=== PATIENT | female | born 1940 | race Caucasian/White ===

== ENCOUNTER 2018-05-21 16:33 | Inpatient (IN) | payer MEDICARE ==
[~2018-05-21] VITALS: Ht 152.4 cm; Wt 53.1 kg
[~2018-05-21 16:33] MED LIST: ACETAMINOPHEN325 M1; BACTROBAN15 GM; COLACE100 MG; EVISTA PO; FAMOTIDINE; HYDROCHLOROTHIA25 M1 PO; HYDROCODON-ACE1 EACH PO; LOVENOX SQ; PERCOCET 5-3251 EACH PO; VYTORIN 10-201 EACH PO
[2018-05-21 16:35] VITALS: BP 96/47
[2018-05-21 17:15] LABS: URINE BILIRUBIN NEGATIVE (Negative); URINE BLOOD TRACE (Negative); URINE CLARITY CLEAR; URINE COLOR YELLOW; URINE GLUCOSE-RANDOM NEGATIVE (Negative); URINE KETONES TRACE (Negative); URINE LEUKOCYTES-REFLEX 1+ (Negative); URINE PROTEIN NEGATIVE (Negative); URINE SPECIFIC GRAVITY >= 1.030 (1.005-1.030); URINE UROBILINOGEN 0.2 E.U./dl (0.2-1.0)
[2018-05-21 17:19] LABS: URINE NITRITE-REFLEX POSITIVE (Negative)
[2018-05-21 17:25] LABS: BACTERIA-REFLEX >30 Many /HPF (None Seen); CASTS None Seen /LPF (None Seen); CRYSTALS None Seen /LPF (None Seen); SQUAMOUS 0-3 Few /LPF (0-3); URINE RBC 0-2 Rare /HPF (0-2); URINE WBC-REFLEX 0-5 Rare /HPF (0-5)
[2018-05-21 17:32] LABS: ABSOLUTE BASOPHILS 0.1 thou/uL (0.0-0.2); ABSOLUTE EOSINOPHILS 0.4 thou/uL (0.0-0.7); ABSOLUTE LYMPHOCYTES 1.3 thou/uL (0.8-5.3); ABSOLUTE MONOCYTES 0.8 thou/uL (0.0-1.2); ABSOLUTE NEUTROPHILS 4.8 thou/uL (1.6-8.1); BASOPHILS 0.8 %; EOSINOPHILS 5.7 %; HEMATOCRIT 38.1 % (37.0-47.0); HEMOGLOBIN 12.6 gm/dL (12.0-15.0); LYMPHOCYTES 17.5 %; MCH 29.2 pg (26.0-34.0); MCV 88.4 fL (80.0-100.0); MONOCYTES 11.1 %; NUCLEATED RBCS 0 /100WBC; PLATELET COUNT* 246 thou/uL (150-400); POLYS 64.9 %; RBC 4.31 mil/uL (4.20-5.00); RDW-CV 14.7 % (10.5-14.5); WBC 7.4 thou/uL (4.0-11.0)
[2018-05-21 17:50] LABS: CALCIUM 9.1 mg/dL (8.5-10.1); CREATININE 0.8 mg/dL (0.6-1.3); POTASSIUM 3.9 mmol/L (3.5-5.1)
[2018-05-21 17:55] LABS: ALBUMIN 3.4 g/dL (3.4-5.0); MAGNESIUM 2.3 mg/dL (1.8-2.4); TOTAL BILIRUBIN 1.1 mg/dL (<0.1-1.0); TOTAL PROTEIN 6.8 g/dL (6.4-8.2)
[2018-05-21 19:35] VITALS: BP 138/52
[2018-05-21 20:22] VITALS: BP 94/71
[2018-05-22 09:08] VITALS: BP 149/84
[2018-05-22 16:00] VITALS: BP 143/59
[2018-05-23 04:32] LABS: HEMATOCRIT 32.2 % (37.0-47.0); HEMOGLOBIN 10.8 gm/dL (12.0-15.0); MCH 29.8 pg (26.0-34.0); MCHC 33.5 g/dL (28.0-37.0); MCV 88.8 fL (80.0-100.0); MPV 8.1 fl. (7.2-11.1); RBC 3.62 mil/uL (4.20-5.00); RDW-CV 14.6 % (10.5-14.5); WBC 4.5 thou/uL (4.0-11.0)
[2018-05-23 05:14] LABS: ALBUMIN 2.5 g/dL (3.4-5.0); CALCIUM 8.7 mg/dL (8.5-10.1); CREATININE 0.6 mg/dL (0.6-1.3); MAGNESIUM 2.1 mg/dL (1.8-2.4); POTASSIUM 3.9 mmol/L (3.5-5.1); TOTAL BILIRUBIN 1.2 mg/dL (<0.1-1.0); TOTAL PROTEIN 4.9 g/dL (6.4-8.2)
[2018-05-23 07:40] VITALS: BP 145/67
[2018-05-24 07:45] LABS: HEMATOCRIT 36.5 % (37.0-47.0); HEMOGLOBIN 12.1 gm/dL (12.0-15.0); MCH 29.3 pg (26.0-34.0); MCHC 33.3 g/dL (28.0-37.0); MPV 7.7 fl. (7.2-11.1); RBC 4.14 mil/uL (4.20-5.00); RDW-CV 14.3 % (10.5-14.5); WBC 4.1 thou/uL (4.0-11.0)
[2018-05-24 07:52] LABS: CREATININE 0.7 mg/dL (0.6-1.3); POTASSIUM 3.7 mmol/L (3.5-5.1)
[2018-05-24 08:45] VITALS: BP 108/78
[2018-05-24] MEDS ORDERED: LEVAQUIN 500 M500 M1 PO (11:20)
[2018-05-24] MEDS ORDERED: ACETAMINOPHEN325 M1 PO (11:20)
[2018-05-24 11:36] VITALS: BP 108/78
[2018-05-24 15:53] VITALS: BP 138/90
[2018-05-25] VITALS: BP 137/80
[2018-05-25 08:44] VITALS: BP 143/86
[2018-05-25 14:41] VITALS: BP 108/78
== END 2018-05-25 15:02 | DRG 690 ==
LOC: M.ERS 16:33 → M.TBA-ER 18:01 → M.ERS 18:01 → M.3W 18:31 → M.TBA-ER 18:31 → M.3W 19:46
PROVIDERS: Personal Emergency Response Attendant; ADMIT Internal Medicine
DX: N39.0 Urinary tract infection, site not specified (principal); E44.1 Mild protein-calorie malnutrition; R65.10 Systemic inflammatory response syndrome (SIRS) of non-infectious origin without acute organ dysfunction; B96.20 Unspecified Escherichia coli [E. coli] as the cause of diseases classified elsewhere; W18.39XA Other fall on same level, initial encounter; I10 Essential (primary) hypertension; F03.90 Unspecified dementia, unspecified severity, without behavioral disturbance, psychotic disturbance, mood disturbance, and anxiety; Z90.710 Acquired absence of both cervix and uterus; Z79.899 Other long term (current) drug therapy; Y93.89 Activity, other specified; Y92.89 Other specified places as the place of occurrence of the external cause; Z68.22 Body mass index [BMI] 22.0-22.9, adult; Y99.8 Other external cause status